=== PATIENT | female | born 1965 | race Two or more races ===

== ENCOUNTER 2025-03-26 00:05 | Emergency (ER) | payer OTHER ==
[~2025-03-26] VITALS: Ht 172.7 cm; Wt 77.1 kg
[2025-03-26] MEDS ORDERED: FAMOTIDINE/PF 20 MG/2 ML VIAL IV PUSH STA (00:26)
[2025-03-26] MEDS ORDERED: METHYLPREDNISOLONE SOD SUCC 125 MG VIAL IV STA (00:26)
[2025-03-26] MEDS ORDERED: MEDROL8 MG PO (02:15)
[2025-03-26] MEDS ORDERED: BENADRYL25 MG PO (02:15)
[2025-03-26] MEDS ORDERED: PEPCID40 MG PO (02:15)
== END 2025-03-26 02:29 | disposition home or self-care (01) ==
LOC: ER 00:05
DX: T78.40XA Allergy, unspecified, initial encounter (principal); R21 Rash and other nonspecific skin eruption; Z91.038 Other insect allergy status

== ENCOUNTER 2025-07-06 21:04 | Emergency (ER) | payer OTHER ==
[~2025-07-06] VITALS: Ht 172.7 cm; Wt 72.1 kg
[~2025-07-06 21:04] MED LIST: BENADRYL25 MG PO; MEDROL8 MG PO; PEPCID40 MG PO
[2025-07-06] MEDS ORDERED: PRILOSEC10 M2 PO (21:24)
[2025-07-07] MEDS ORDERED: FAMOTIDINE/PF 20 MG/2 ML VIAL IV PUSH STA (01:13)
[2025-07-07] MEDS ORDERED: 0.9 % SODIUM CHLORIDE 1,000 ML IV STA (01:14)
[2025-07-07 02:24] LABS: BASO % 0.5 % (0.1-1.2); EOS # 0.07 (0.04-0.54); EOS % 0.8 % (0.7-7.0); LYMPH # 2.00 (1.18-3.74); LYMPH % 23.6 % (19.3-53.1); MEAN PLATELET VOLUME 9.00 fl (9.4-12.4); MONO # 0.76 (0.24-0.82); MONO % 9.0 % (4.7-12.5); NEUT # 5.61 (1.56-6.13); NEUT % 66.0 % (34.0-71.1); RED CELL DISTRIBUTION WIDTH 11.8 % (11.6-14.4)
[2025-07-07 02:36] LABS: ALT/SGPT 30.0 U/L (12-78); AST/SGOT 10.0 U/L (15-37); BILIRUBIN TOTAL 0.68 mg/dL (0.3-1.2); BUN CREA RATIO 10.0 (7.0-25.0); CREATININE SERUM 0.68 mg/dL (0.55-1.02); GFR 87.96; GLOBULINA 3.3 G/DL (2.4-3.5); GLUCOSE FASTING 102.0 mg/dL (65-100); OSMOLALITY SERUM 266.0 MOSM/KG (275-295)
== END 2025-07-07 05:27 | disposition home or self-care (01) ==
LOC: ER 21:04
PROVIDERS: General Practice
DX: K21.9 Gastro-esophageal reflux disease without esophagitis (principal); Z91.048 Other nonmedicinal substance allergy status